=== PATIENT | male | born 1990 | race Caucasian/White ===

== ENCOUNTER 2019-01-31 11:43 | Inpatient (IN) | payer BC, MEDICAID ==
--- NOTE | 2019-01-31 12:25 | EDM.PDOC ---
ED HPI GENERAL MEDICAL PROBLEM - General Chief Complaint: General Stated Complaint: medical clearance Time Seen by Provider: 01/31/19 11:50 Source of Information: Reports: Patient, Police History Limitations: Reports: No Limitations - History of Present Illness INITIAL COMMENTS - FREE TEXT/NARRATIVE: Patient comes into the emergency department for medical clearance via police department. Pt is a known type I diabetic and takes sliding scale insulin and long acting insulin at hs. currently patient denies any concerns of nausea, vomiting, or vision, changes in vision, chest pain, shortness of breath, swollen extremities, tingling, or numbness. 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 With an open wound on the lower aspect of the foot and the second tow. Patient states that he has not seen medical provider for this. He denies any pus formation, fever, redness, or decrease in sensation. Pt currently denies any pain or changes in his health care. He does admit to using both amphetamine and marijuana. Last use of methenamine was yesterday last use of marijuana was approximately 2 days ago. Patient also states that she uses both drugs as often as possible when he can get the supply. - Related Data Allergies Allergy/AdvReac Type Severity Reaction Status Date / Time No Known Drug Allergies Allergy Other Verified 01/31/19 12:41 Home Meds: Home Meds Insulin Aspart [Novolog Flexpen] See Protocol SQ TIDMEALS 07/18/15 [History] Insulin Glarg,Human.Rec.Analog [Lantus] 30 unit SUBCUT DAILY 01/31/19 [History] Past Medical History Cardiovascular History: Reports: [place] Other Cardiovascular History: When 21, instigated by hyperglycemic episode Respiratory History: Reports: Asthma Other Gastrointestinal History: esophageal tear Neurological History: Reports: None Psychiatric History: Reports: Addiction Endocrine/Metabolic History: Reports: Diabetes, Type I Dermatologic History: Reports: None - Infectious Disease History Infectious Disease History: Reports: Chicken Pox - Past Surgical History Endocrine Surgical History: Reports: None Neurological Surgical History: Reports: None Musculoskeletal Surgical History: Reports: Other (See Below) Other Musculoskeletal Surgeries/Procedures:: left lower leg fracture surgical repair Social & Family History - Caffeine Use Caffeine Use: Reports: Soda ED ROS GENERAL - Review of Systems Review Of Systems: See Below Constitutional: Reports: No Symptoms HEENT: Reports: No Symptoms Respiratory: Reports: No Symptoms Cardiovascular: Reports: No Symptoms Endocrine: Reports: No Symptoms GI/Abdominal: Reports: No Symptoms : Reports: No Symptoms Musculoskeletal: Reports: No Symptoms Skin: Reports: Dryness, Wound, Change in Color Neurological: Reports: No Symptoms Psychiatric: Reports: No Symptoms Hematologic/Lymphatic: Reports: No Symptoms Immunologic: Reports: No Symptoms ED EXAM, GENERAL - Physical Exam Exam: See Below General Appearance: Alert, WD/WN, No Apparent Distress Eye Exam: Bilateral Eye: EOMI, PERRL Head: Atraumatic, Normocephalic Neck: Normal Inspection, Supple, Non-Tender Respiratory/Chest: No Respiratory Distress, Lungs Clear, Normal Breath Sounds, No Accessory Muscle Use Cardiovascular: Normal Peripheral Pulses, Regular Rate, Rhythm, No Edema Back Exam: Normal Inspection, Full Range of Motion Extremities: Non-Tender, No Pedal Edema, Redness Neurological: Alert, Slow to Respond Psychiatric: Normal Affect Skin Exam: Warm, Dry, Other (foot ulcer- 2cm width- clear drainage noted. second toe ulceration noted 1cm clear drainage noted. ) Course - Vital Signs Last Recorded V/S: Last Vital Signs Temp 39.0 C H 01/31/19 15:56 Pulse 124 H 01/31/19 15:56 Resp 16 01/31/19 15:56 BP 124/58 L 01/31/19 15:56 Pulse Ox 92 L 01/31/19 15:56 - Orders/Labs/Meds Orders: Active Orders 24 hr Category Date Time Status Blood Glucose Check, Bedside [RC] ONETIME Care 01/31/19 16:43 Active EKG Documentation Completion [RC] STAT Care 01/31/19 11:59 Active CULTURE BLOOD [BC] Stat Lab 01/31/19 14:00 Results Insulin Regular, Human [HumuLIN R] 99 unit Med 01/31/19 16:15 Active Sodium Chloride 0.9% [Normal Saline] 99 ml IV TITRATE Blood Culture x2 Reflex Set [OM.PC] Stat Oth 01/31/19 13:40 Ordered Medication Orders Insulin Human Regular 99 unit/ (Sodium Chloride) 99.99 mls @ 8.24 mls/hr IV TITRATE DEBBY; Protocol Last Admin: 01/31/19 16:19 Dose: 0.1 units/kg/hr, 8.24 mls/hr Labs: Laboratory Tests 01/31/19 01/31/19 01/31/19 Range/Units 12:42 12:42 13:00 WBC 11.5 H (4.0-10.0) x10^3/uL RBC 5.29 (4.5-6.0) x10^6/uL Hgb 15.3 (14.0-18.0) g/dL Hct 43.5 (40.0-52.0) % MCV 82.2 (78.0-93.0) fL MCH 28.9 (26.0-32.0) pg MCHC 35.2 (32.0-36.0) g/dL RDW Coeff of Mily 12.2 (10.0-15.0) % Plt Count 384 (130-400) x10^3/uL Neut % (Auto) 82.3 H (50.0-80.0) % Lymph % (Auto) 12.3 L (25.0-50.0) % [place] % (Auto) 4.2 (2.0-11.0) % Eos % (Auto) 0.8 (0.0-4.0) % Baso % (Auto) 0.4 (0.2-1.2) % POC ABG pH (7.35-7.45) ABG pH POC ABG pCO2 (35-45) mmHG ABG pCO2 POC ABG pO2 (80-105) mmHG ABG pO2 POC ABG HCO3 ABG HCO3 POC ABG Total CO2 ABG Total CO2 POC ABG O2 Sat ABG O2 Content POC ABG Base Excess ABG Base Excess A-a Gradient Oxygen Flow Rate FiO2 POC FiO2 Blood Gas Comments Sodium 133 L (136-145) mmol/L Potassium 4.4 (3.5-5.1) mmol/L Chloride 96 L (98-107) mmol/L Carbon Dioxide 25 (21-32) mmol/L Anion Gap 16.4 (10-20) mmol/L BUN 21 H (7-18) mg/dL Creatinine 0.8 (0.70-1.30) mg/dL Est Cr Clr Drug Dosing 160.17 mL/min Estimated GFR (MDRD) > 60 Glucose 407 H* (74-106) mg/dL Lactic Acid (0.4-2.0) mmol/L Calcium 9.4 (8.5-10.1) mg/dL Corrected Calcium 10.36 H (8.5-10.1) mg/dL Total Bilirubin 0.3 (0.2-1.0) mg/dL AST 10 L (15-37) U/L ALT 25 (16-63) U/L Alkaline Phosphatase 198 H (46-116) U/L Total Protein 7.1 (6.4-8.2) g/dL Albumin 2.8 L (3.4-5.0) g/dL Globulin 4.3 Albumin/Globulin Ratio 0.65 Urine Color Yellow (YELLOW) Urine Appearance Clear (CLEAR) Urine pH 5.0 (5.0-8.0) Ur Specific [place] 1.010 Urine Protein 100 H (NEGATIVE) mg/dL Urine Glucose (UA) 500 H (NEGATIVE) mg/dL Urine Ketones 15 H (NEGATIVE) mg/dL Urine Occult Blood Moderate H (NEGATIVE) Urine Nitrite Negative (NEGATIVE) Urine Bilirubin Negative (NEGATIVE) Urine Urobilinogen 0.2 (0.2) EU/dL Ur Leukocyte Esterase Negative (NEGATIVE) Urine RBC 0-5 (NOT SEEN) /HPF Urine WBC 0-5 (NOT SEEN) /HPF Ur Squamous Epith Cells Few H (NEGATIVE) /HPF Urine Bacteria Rare (NEGATIVE) /HPF Urine Mucus Few H (NEGATIVE) /LPF Urine Opiates Screen (NEAGTIVE) Ur Buprenorphine Scrn (NEGATIVE) Ur Oxycodone Screen (NEGATIVE) Urine Methadone Screen (NEGATIVE) Ur Barbiturates Screen (NEGATIVE) Ur Tricyclics Screen (NEGATIVE) Ur Amphetamine Screen (NEGATIVE) U Methamphetamines Scrn (NEGATIVE) Urine MDMA Screen (NEGATIVE) U Benzodiazepines Scrn (NEGATIVE) U Cocaine Metab Screen (NEGATIVE) U Marijuana (THC) Screen (NEGATIVE) 01/31/19 01/31/19 01/31/19 Range/Units 13:00 14:00 15:00 WBC (4.0-10.0) x10^3/uL RBC (4.5-6.0) x10^6/uL Hgb (14.0-18.0) g/dL Hct (40.0-52.0) % MCV (78.0-93.0) fL MCH (26.0-32.0) pg MCHC (32.0-36.0) g/dL RDW Coeff of Mily (10.0-15.0) % Plt Count (130-400) x10^3/uL Neut % (Auto) (50.0-80.0) % Lymph % (Auto) (25.0-50.0) % [place] % (Auto) (2.0-11.0) % Eos % (Auto) (0.0-4.0) % Baso % (Auto) (0.2-1.2) % POC ABG pH (7.35-7.45) ABG pH Cancelled POC ABG pCO2 (35-45) mmHG ABG pCO2 Cancelled POC ABG pO2 (80-105) mmHG ABG pO2 Cancelled POC ABG HCO3 ABG HCO3 Cancelled POC ABG Total CO2 ABG Total CO2 Cancelled POC ABG O2 Sat ABG O2 Content Cancelled POC ABG Base Excess ABG Base Excess Cancelled A-a Gradient Cancelled Oxygen Flow Rate Cancelled FiO2 Cancelled POC FiO2 Blood Gas Comments Cancelled Sodium (136-145) mmol/L Potassium (3.5-5.1) mmol/L Chloride (98-107) mmol/L Carbon Dioxide (21-32) mmol/L Anion Gap (10-20) mmol/L BUN (7-18) mg/dL Creatinine (0.70-1.30) mg/dL Est Cr Clr Drug Dosing mL/min Estimated GFR (MDRD) Glucose (74-106) mg/dL Lactic Acid 1.6 (0.4-2.0) mmol/L Calcium (8.5-10.1) mg/dL Corrected Calcium (8.5-10.1) mg/dL Total Bilirubin (0.2-1.0) mg/dL AST (15-37) U/L ALT (16-63) U/L Alkaline Phosphatase (46-116) U/L Total Protein (6.4-8.2) g/dL Albumin (3.4-5.0) g/dL Globulin Albumin/Globulin Ratio Urine Color (YELLOW) Urine Appearance (CLEAR) Urine pH (5.0-8.0) Ur Specific [place] Urine Protein (NEGATIVE) mg/dL Urine Glucose (UA) (NEGATIVE) mg/dL Urine Ketones (NEGATIVE) mg/dL Urine Occult Blood (NEGATIVE) Urine Nitrite (NEGATIVE) Urine Bilirubin (NEGATIVE) Urine Urobilinogen (0.2) EU/dL Ur Leukocyte Esterase (NEGATIVE) Urine RBC (NOT SEEN) /HPF Urine WBC (NOT SEEN) /HPF Ur Squamous Epith Cells (NEGATIVE) /HPF Urine Bacteria (NEGATIVE) /HPF Urine Mucus (NEGATIVE) /LPF Urine Opiates Screen Negative (NEAGTIVE) Ur Buprenorphine Scrn Negative (NEGATIVE) Ur Oxycodone Screen Negative (NEGATIVE) Urine Methadone Screen Negative (NEGATIVE) Ur Barbiturates Screen Negative (NEGATIVE) Ur Tricyclics Screen Negative (NEGATIVE) Ur Amphetamine Screen Negative (NEGATIVE) U Methamphetamines Scrn Negative (NEGATIVE) Urine MDMA Screen Negative (NEGATIVE) U Benzodiazepines Scrn Negative (NEGATIVE) U Cocaine Metab Screen Negative (NEGATIVE) U Marijuana (THC) Screen Negative (NEGATIVE) 01/31/19 01/31/19 Range/Units 15:00 16:36 WBC (4.0-10.0) x10^3/uL RBC (4.5-6.0) x10^6/uL Hgb (14.0-18.0) g/dL Hct (40.0-52.0) % MCV (78.0-93.0) fL MCH (26.0-32.0) pg MCHC (32.0-36.0) g/dL RDW Coeff of Mily (10.0-15.0) % Plt Count (130-400) x10^3/uL Neut % (Auto) (50.0-80.0) % Lymph % (Auto) (25.0-50.0) % [place] % (Auto) (2.0-11.0) % Eos % (Auto) (0.0-4.0) % Baso % (Auto) (0.2-1.2) % POC ABG pH 6.99 L* 7.395 (7.35-7.45) ABG pH POC ABG pCO2 < 5 L 38 (35-45) mmHG ABG pCO2 POC ABG pO2 92 74 L (80-105) mmHG ABG pO2 POC ABG HCO3 TNP 23 ABG HCO3 POC ABG Total CO2 TNP 24 ABG Total CO2 POC ABG O2 Sat TNP 95 ABG O2 Content POC ABG Base Excess TNP -2 ABG Base Excess A-a Gradient Oxygen Flow Rate FiO2 POC FiO2 0.21 0.21 Blood Gas Comments Sodium (136-145) mmol/L Potassium (3.5-5.1) mmol/L Chloride (98-107) mmol/L Carbon Dioxide (21-32) mmol/L Anion Gap (10-20) mmol/L BUN (7-18) mg/dL Creatinine (0.70-1.30) mg/dL Est Cr Clr Drug Dosing mL/min Estimated GFR (MDRD) Glucose (74-106) mg/dL Lactic Acid (0.4-2.0) mmol/L Calcium (8.5-10.1) mg/dL Corrected Calcium (8.5-10.1) mg/dL Total Bilirubin (0.2-1.0) mg/dL AST (15-37) U/L ALT (16-63) U/L Alkaline Phosphatase (46-116) U/L Total Protein (6.4-8.2) g/dL Albumin (3.4-5.0) g/dL Globulin Albumin/Globulin Ratio Urine Color (YELLOW) Urine Appearance (CLEAR) Urine pH (5.0-8.0) Ur Specific [place] Urine Protein (NEGATIVE) mg/dL Urine Glucose (UA) (NEGATIVE) mg/dL Urine Ketones (NEGATIVE) mg/dL Urine Occult Blood (NEGATIVE) Urine Nitrite (NEGATIVE) Urine Bilirubin (NEGATIVE) Urine Urobilinogen (0.2) EU/dL Ur Leukocyte Esterase (NEGATIVE) Urine RBC (NOT SEEN) /HPF Urine WBC (NOT SEEN) /HPF Ur Squamous Epith Cells (NEGATIVE) /HPF Urine Bacteria (NEGATIVE) /HPF Urine Mucus (NEGATIVE) /LPF Urine Opiates Screen (NEAGTIVE) Ur Buprenorphine Scrn (NEGATIVE) Ur Oxycodone Screen (NEGATIVE) Urine Methadone Screen (NEGATIVE) Ur Barbiturates Screen (NEGATIVE) Ur Tricyclics Screen (NEGATIVE) Ur Amphetamine Screen (NEGATIVE) U Methamphetamines Scrn (NEGATIVE) Urine MDMA Screen (NEGATIVE) U Benzodiazepines Scrn (NEGATIVE) U Cocaine Metab Screen (NEGATIVE) U Marijuana (THC) Screen (NEGATIVE) Meds: Medications Generic Name Dose Route Start Last Admin Trade Name Freq PRN Reason Stop Dose Admin Insulin Human Regular 99 unit/ 99.99 mls @ 8.24 mls/hr 01/31/19 16:15 16:19 Sodium Chloride IV 0.1 units/kg/hr TITRATE DEBBY 8.24 mls/hr Administration Protocol 0.1 UNITS/KG/HR Discontinued Medications Generic Name Dose Route Start Last Admin Trade Name Freq PRN Reason Stop Dose Admin Acetaminophen 650 mg 01/31/19 13:40 01/31/19 14:07 Tylenol PO 01/31/19 13:41 650 mg NOW ONE Administration Ceftriaxone Sodium 1 gm 01/31/19 13:40 01/31/19 14:08 Rocephin IVPUSH 01/31/19 13:41 1 gm ONETIME ONE Administration Sodium Chloride 1,000 mls @ 1,000 mls/hr 01/31/19 13:41 01/31/19 14:07 Normal Saline IV 01/31/19 14:40 1,000 mls/hr ONETIME ONE Administration Sodium Chloride 1,000 mls @ 1,000 mls/hr 01/31/19 16:13 01/31/19 16:19 Normal Saline IV 01/31/19 17:12 1,000 mls/hr ONETIME ONE Administration Ibuprofen 600 mg 01/31/19 16:57 Motrin PO 01/31/19 16:58 NOW STA Insulin Human Regular 10 unit 01/31/19 13:49 01/31/19 14:06 Humulin R IVPUSH 01/31/19 13:50 10 unit ONETIME ONE Administration Departure - Departure Time of Disposition: 17:00 Disposition: Admitted As Inpatient 67 Clinical Impression: Hyperglycemia due to type 1 diabetes mellitus, Dehydration - Discharge Information *PRESCRIPTION DRUG MONITORING PROGRAM REVIEWED*: Not Applicable *COPY OF PRESCRIPTION DRUG MONITORING REPORT IN PATIENT SHARON: Not Applicable - My Orders Last 24 Hours: My Active Orders 01/31/19 11:59 EKG Documentation Completion [RC] STAT 01/31/19 13:40 Blood Culture x2 Reflex Set [OM.PC] Stat 01/31/19 14:00 CULTURE BLOOD [BC] Stat 01/31/19 16:15 Insulin Regular, Human [HumuLIN R] 99 unit Sodium Chloride 0.9% [Normal Saline ] 99 ml IV TITRATE 01/31/19 16:43 Blood Glucose Check, Bedside [RC] ONETIME - Assessment/Plan Last 24 Hours: My Active Orders 01/31/19 11:59 EKG Documentation Completion [RC] STAT 01/31/19 13:40 Blood Culture x2 Reflex Set [OM.PC] Stat 01/31/19 14:00 CULTURE BLOOD [BC] Stat 01/31/19 16:15 Insulin Regular, Human [HumuLIN R] 99 unit Sodium Chloride 0.9% [Normal Saline ] 99 ml IV TITRATE 01/31/19 16:43 Blood Glucose Check, Bedside [RC] ONETIME Assessment:: 1. Medical fdc clearance 2. Hyperglycemia 3. Fever 4. wound ulcer Plan: 1. medical clearance for fdc 2. labs completed in ER 3. During the emergency room visit patient became febrile temp up to 103 and had chills. Patient became less alert but still responsive to verbal stimuli . Sugars noted. Patient was responsive. Blood sugar critical level at 407. Nursing personnel attempted multiple times to place IV without success.Delay of antibiotic related to initiation of an IV. 4. X-ray completed of the foot 5. Regular insulin ordered 6. Fluid bolus given in ER 7. Rocephin given in ER 8. 1440 please released the pt from their custody and pt his here as just a medical patient at this time. 9. Consult with [facility] at 1540. Hospitalist request to redraw blood gas 10. Insulin drip started 11. Repeat blood gas within normal limits. Pt is feeling "a little better". Pt would like to be admitted here if possible. He does not have a primary and stated he would like to get set up with one. Yash Mello is machine operations supervisor for [facility] and is willing to admit the pt to acute care and manage the patients diabetes watcher [employer]. 12. All questions and concerns addressed prior admit.
[2019-01-31 13:09] LABS: CHLORIDE,CL 96 mmol/L (98-107); SODIUM,NA 133 mmol/L (136-145)
[2019-01-31 13:21] LABS: ANION GAP 16.4 mmol/L (10-20)
[2019-01-31] MEDS ORDERED: Acetaminophen 325 MG Tab PO ONE (13:40)
[2019-01-31] MEDS ORDERED: cefTRIAXone 1 GM Vial IVPUSH ONE (13:40)
[2019-01-31] MEDS ORDERED: Sodium Chloride 0.9% 1,000 ML IV ONE ×2 (13:41→16:13)
[2019-01-31] MEDS ORDERED: Insulin Regular, Human 100 Units/ML 3 ML Vial IVPUSH ONE (13:49)
[2019-01-31] MEDS ORDERED: Insulin Regular, Human 99 UNIT in Sodium Chloride 0.9% 99 ML IV SCH ×2 (16:15)
--- NOTE | 2019-01-31 16:16 | CR ---
[id number] RAD/RAD Foot Left 3V Min EXAM: 3 VIEWS LEFT FOOT. INDICATION: FOOT INFECTION. COMPARISON: None. DISCUSSION: Postsurgical changes following transmetatarsal 1st digit amputation. There appears to be an ulceration within the overlying soft tissues. No definite radiographic evidence of acute ostomy orifice. Chronic changes of the left 2nd metatarsal. IMPRESSION: 1. No definite radiographic evidence of acute osteomyelitis at this time. Carlos Wilkinson DO 01/31/19 [id number] Thank you for allowing us to participate in the care of your patient.
[2019-01-31] MEDS ORDERED: Ibuprofen 200 MG Tab PO STA (16:57)
[2019-01-31] MEDS ORDERED: Docusate Sodium 100 MG Cap PO PRN (18:04)
[2019-01-31] MEDS ORDERED: Ondansetron 4 MG Tab.DIS PO PRN (18:04)
[2019-01-31] MEDS ORDERED: Acetaminophen 325 MG Tab PO PRN (18:04)
[2019-01-31] MEDS ORDERED: Polyethylene Glycol 3350 Powder 17 GM Packet PO PRN (18:04)
[2019-01-31] MEDS: Insulin Regular, Human 100 Units/ML 3 ML Vial SUBCUT SCH (18:22)
--- NOTE | 2019-01-31 18:46 | PCM.HP ---
H&P History of Present Illness - General Date of Service: 01/31/19 Admit Problem/Dx: Admission Diagnosis/Problem Admission Diagnosis/Problem Sepsis 2/2 diabetic foot ulcer Uncontrolled DM HTN 2/2 DM Hyperglycemia Diabetic Foot Ulcers Dehydration Non-compliance Source of Information: Patient, Old Records, RN, RN Notes Reviewed History Limitations: Reports: No Limitations - History of Present Illness Initial Comments - Free Text/Narative: Patient was brought into the emergency department for medical clearance via [facility] hospital department. Pt is a known type I diabetic and takes sliding scale insulin and long acting insulin at daily. Currently patient denies any concerns of nausea, vomiting, or vision, changes in vision, chest pain, shortness of breath, swollen extremities, tingling, or numbness. 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 Patient states that he has not seen medical provider for this. He denies any pus formation, fever, redness, or decrease in sensation. Pt currently denies any pain or changes in his health care. He does admit to using both amphetamine and marijuana. Last use of methenamine was yesterday last use of marijuana was approximately 2 days ago. Patient also states that she uses both drugs as often as possible when he can get the supply. Patient was admitted to [facility] 09/26/2018 for DKA. He apparently was abusive to staff according to [place] records. He left AMA on 09/28/2018. He was seen in clinic on 10/10/2018 in the Endocrine department at [place]. Adjustments were made to his insulin regimen but patient has not been compliant. Patient was diagnosed with Type I DM at age 12. Patient is not having any neurological deficits. He has sensation to both lower extremities and feet. He denies any pain to his wounds. Duration of Symptoms: Reports: Chronic - Related Data Allergies/Adverse Reactions: Allergies Allergy/AdvReac Type Severity Reaction Status Date / Time No Known Drug Allergies Allergy Other Verified 01/31/19 12:41 Home Medications: Home Meds Insulin Aspart [Novolog Flexpen] See Protocol SQ TIDMEALS 07/18/15 [History] Insulin Glarg,Human.Rec.Analog [Lantus] 30 unit SUBCUT DAILY 01/31/19 [History] Past Medical History Cardiovascular History: Reports: [place] Other Cardiovascular History: When 21, instigated by hyperglycemic episode Respiratory History: Reports: Asthma Other Gastrointestinal History: esophageal tear Neurological History: Reports: None Psychiatric History: Reports: Addiction Endocrine/Metabolic History: Reports: Diabetes, Type I Dermatologic History: Reports: None - Infectious Disease History Infectious Disease History: Reports: Chicken Pox - Past Surgical History Endocrine Surgical History: Reports: None Neurological Surgical History: Reports: None Musculoskeletal Surgical History: Reports: Other (See Below) Other Musculoskeletal Surgeries/Procedures:: left lower leg fracture surgical repair Social & Family History - Tobacco Use Smoking Status *Q: Never Smoker - Caffeine Use Caffeine Use: Reports: Soda - Recreational Drug Use Recreational Drug Use: Yes Drug Use in Last 12 Months: Yes Recreational Drug Type: Reports: Marijuana/Hashish, Methamphetamine H&P Review of Systems - Review of Systems: Review Of Systems: See Below General: Reports: Fever Pulmonary: Denies: Shortness of Breath, Cough Cardiovascular: Denies: Chest Pain, Palpitations Gastrointestinal: Reports: Nausea. Denies: Abdominal Pain, Vomiting Skin: Reports: Wound (diabetic wounds to left and right foot) Neurological: Reports: No Symptoms Exam - Exam Exam: See Below - Vital Signs Vital Signs: Last Vital Signs Temp 38.1 C 01/31/19 18:17 Pulse 114 H 01/31/19 17:19 Resp 14 01/31/19 17:19 BP 103/76 01/31/19 17:19 Pulse Ox 94 L 01/31/19 17:19 Weight: 73.255 kg - Exam Quality Assessment: Skin Breakdown. No: DVT Prophylaxis General: Alert, Oriented, Cooperative Lungs: Clear to Auscultation, Normal Respiratory Effort Cardiovascular: Regular Rhythm, Normal S1, Normal S2, Tachycardia GI/Abdominal Exam: Normal Bowel Sounds, Soft, Non-Tender Peripheral Pulses: 2+: Posterior Tibial (L), Posterior Tibial (R), Dorsalis Pedis (L), Dorsalis Pedis (R) Skin: Warm, Dry, Wound (See attached photos), Other (Open wound to the left great toe amputation site, looks like it has been trying to heal for quite some time; open wound to the top of the 2nd digit right foot, scant purulent drainage , no odor (see photos in EMR)) Neuro Extensive - Mental Status: Alert, Oriented x3 - Patient Data Lab Results Last 24 hrs: Laboratory Results - last 24 hr 01/31/19 01/31/1901/31/19 Range/Units 12:42 12:42 13:00 WBC 11.5 H (4.0-10.0) x10^3/uL RBC 5.29 (4.5-6.0) x10^6/uL Hgb 15.3 (14.0-18.0) g/dL Hct 43.5 (40.0-52.0) % MCV 82.2 (78.0-93.0) fL MCH 28.9 (26.0-32.0) pg MCHC 35.2 (32.0-36.0) g/dL RDW Coeff of Mily 12.2 (10.0-15.0) % Plt Count 384 (130-400) x10^3/uL Neut % (Auto) 82.3 H (50.0-80.0) % Lymph % (Auto) 12.3 L (25.0-50.0) % [place] % (Auto) 4.2 (2.0-11.0) % Eos % (Auto) 0.8 (0.0-4.0) % Baso % (Auto) 0.4 (0.2-1.2) % POC ABG pH (7.35-7.45) ABG pH POC ABG pCO2 (35-45) mmHG ABG pCO2 POC ABG pO2 (80-105) mmHG ABG pO2 POC ABG HCO3 ABG HCO3 POC ABG Total CO2 ABG Total CO2 POC ABG O2 Sat ABG O2 Content POC ABG Base Excess ABG Base Excess A-a Gradient Oxygen Flow Rate FiO2 POC FiO2 Blood Gas Comments Sodium 133 L (136-145) mmol/L Potassium 4.4 (3.5-5.1) mmol/L Chloride 96 L (98-107) mmol/L Carbon Dioxide 25 (21-32) mmol/L Anion Gap 16.4 (10-20) mmol/L BUN 21 H (7-18) mg/dL Creatinine 0.8 (0.70-1.30) mg/dL Est Cr Clr Drug Dosing 160.17 mL/min Estimated GFR (MDRD) > 60 Glucose 407 H* (74-106) mg/dL POC Glucose (74-106) mg/dL Lactic Acid (0.4-2.0) mmol/L Calcium 9.4 (8.5-10.1) mg/dL Corrected Calcium 10.36 H (8.5-10.1) mg/dL Total Bilirubin 0.3 (0.2-1.0) mg/dL AST 10 L (15-37) U/L ALT 25 (16-63) U/L Alkaline Phosphatase 198 H (46-116) U/L Total Protein 7.1 (6.4-8.2) g/dL Albumin 2.8 L (3.4-5.0) g/dL Globulin 4.3 Albumin/Globulin Ratio 0.65 Urine Color Yellow (YELLOW) Urine Appearance Clear (CLEAR) Urine pH 5.0 (5.0-8.0) Ur Specific [place] 1.010 Urine Protein 100 H (NEGATIVE) mg/dL Urine Glucose (UA) 500 H (NEGATIVE) mg/dL Urine Ketones 15 H (NEGATIVE) mg/dL Urine Occult Blood Moderate H (NEGATIVE) Urine Nitrite Negative (NEGATIVE) Urine Bilirubin Negative (NEGATIVE) Urine Urobilinogen 0.2 (0.2) EU/dL Ur Leukocyte Esterase Negative (NEGATIVE) Urine RBC 0-5 (NOT SEEN) /HPF Urine WBC 0-5 (NOT SEEN) /HPF Ur Squamous Epith Cells Few H (NEGATIVE) /HPF Urine Bacteria Rare (NEGATIVE) /HPF Urine Mucus Few H (NEGATIVE) /LPF Urine Opiates Screen (NEAGTIVE) Ur Buprenorphine Scrn (NEGATIVE) Ur Oxycodone Screen (NEGATIVE) Urine Methadone Screen (NEGATIVE) Ur Barbiturates Screen (NEGATIVE) Ur Tricyclics Screen (NEGATIVE) Ur Amphetamine Screen (NEGATIVE) U Methamphetamines Scrn (NEGATIVE) Urine MDMA Screen (NEGATIVE) U Benzodiazepines Scrn (NEGATIVE) U Cocaine Metab Screen (NEGATIVE) U Marijuana (THC) Screen (NEGATIVE) 01/31/19 01/31/19 01/31/19 Range/Units 13:00 14:00 15:00 WBC (4.0-10.0) x10^3/uL RBC (4.5-6.0) x10^6/uL Hgb (14.0-18.0) g/dL Hct (40.0-52.0) % MCV (78.0-93.0) fL MCH (26.0-32.0) pg MCHC (32.0-36.0) g/dL RDW Coeff of Mily (10.0-15.0) % Plt Count (130-400) x10^3/uL Neut % (Auto) (50.0-80.0) % Lymph % (Auto) (25.0-50.0) % [place] % (Auto) (2.0-11.0) % Eos % (Auto) (0.0-4.0) % Baso % (Auto) (0.2-1.2) % POC ABG pH (7.35-7.45) ABG pH Cancelled POC ABG pCO2 (35-45) mmHG ABG pCO2 Cancelled POC ABG pO2 (80-105) mmHG ABG pO2 Cancelled POC ABG HCO3 ABG HCO3 Cancelled POC ABG Total CO2 ABG Total CO2 Cancelled POC ABG O2 Sat ABG O2 Content Cancelled POC ABG Base Excess ABG Base Excess Cancelled A-a Gradient Cancelled Oxygen Flow Rate Cancelled FiO2 Cancelled POC FiO2 Blood Gas Comments Cancelled Sodium (136-145) mmol/L Potassium (3.5-5.1) mmol/L Chloride (98-107) mmol/L Carbon Dioxide (21-32) mmol/L Anion Gap (10-20) mmol/L BUN (7-18) mg/dL Creatinine (0.70-1.30) mg/dL Est Cr Clr Drug Dosing mL/min Estimated GFR (MDRD) Glucose (74-106) mg/dL POC Glucose (74-106) mg/dL Lactic Acid 1.6 (0.4-2.0) mmol/L Calcium (8.5-10.1) mg/dL Corrected Calcium (8.5-10.1) mg/dL Total Bilirubin (0.2-1.0) mg/dL AST (15-37) U/L ALT (16-63) U/L Alkaline Phosphatase (46-116) U/L Total Protein (6.4-8.2) g/dL Albumin (3.4-5.0) g/dL Globulin Albumin/Globulin Ratio Urine Color (YELLOW) Urine Appearance (CLEAR) Urine pH (5.0-8.0) Ur Specific [place] Urine Protein (NEGATIVE) mg/dL Urine Glucose (UA) (NEGATIVE) mg/dL Urine Ketones (NEGATIVE) mg/dL Urine Occult Blood (NEGATIVE) Urine Nitrite (NEGATIVE) Urine Bilirubin (NEGATIVE) Urine Urobilinogen (0.2) EU/dL Ur Leukocyte Esterase (NEGATIVE) Urine RBC (NOT SEEN) /HPF Urine WBC (NOT SEEN) /HPF Ur Squamous Epith Cells (NEGATIVE) /HPF Urine Bacteria (NEGATIVE) /HPF Urine Mucus (NEGATIVE) /LPF Urine Opiates Screen Negative (NEAGTIVE) Ur Buprenorphine Scrn Negative (NEGATIVE) Ur Oxycodone Screen Negative (NEGATIVE) Urine Methadone Screen Negative (NEGATIVE) Ur Barbiturates Screen Negative (NEGATIVE) Ur Tricyclics Screen Negative (NEGATIVE) Ur Amphetamine Screen Negative (NEGATIVE) U Methamphetamines Scrn Negative (NEGATIVE) Urine MDMA Screen Negative (NEGATIVE) U Benzodiazepines Scrn Negative (NEGATIVE) U Cocaine Metab Screen Negative (NEGATIVE) U Marijuana (THC) Screen Negative (NEGATIVE) 01/31/19 01/31/19 01/31/19 Range/Units 15:00 16:36 17:45 WBC (4.0-10.0) x10^3/uL RBC (4.5-6.0) x10^6/uL Hgb (14.0-18.0) g/dL Hct (40.0-52.0) % MCV (78.0-93.0) fL MCH (26.0-32.0) pg MCHC (32.0-36.0) g/dL RDW Coeff of Mily (10.0-15.0) % Plt Count (130-400) x10^3/uL Neut % (Auto) (50.0-80.0) % Lymph % (Auto) (25.0-50.0) % [place] % (Auto) (2.0-11.0) % Eos % (Auto) (0.0-4.0) % Baso % (Auto) (0.2-1.2) % POC ABG pH 6.99 L* 7.395 (7.35-7.45) ABG pH POC ABG pCO2 < 5 L 38 (35-45) mmHG ABG pCO2 POC ABG pO2 92 74 L (80-105) mmHG ABG pO2 POC ABG HCO3 TNP 23 ABG HCO3 POC ABG Total CO2 TNP 24 ABG Total CO2 POC ABG O2 Sat TNP 95 ABG O2 Content POC ABG Base Excess TNP -2 ABG Base Excess A-a Gradient Oxygen Flow Rate FiO2 POC FiO2 0.21 0.21 Blood Gas Comments Sodium (136-145) mmol/L Potassium (3.5-5.1) mmol/L Chloride (98-107) mmol/L Carbon Dioxide (21-32) mmol/L Anion Gap (10-20) mmol/L BUN (7-18) mg/dL Creatinine (0.70-1.30) mg/dL Est Cr Clr Drug Dosing mL/min Estimated GFR (MDRD) Glucose (74-106) mg/dL POC Glucose 47 L (74-106) mg/dL Lactic Acid (0.4-2.0) mmol/L Calcium (8.5-10.1) mg/dL Corrected Calcium (8.5-10.1) mg/dL Total Bilirubin (0.2-1.0) mg/dL AST (15-37) U/L ALT (16-63) U/L Alkaline Phosphatase (46-116) U/L Total Protein (6.4-8.2) g/dL Albumin (3.4-5.0) g/dL Globulin Albumin/Globulin Ratio Urine Color (YELLOW) Urine Appearance (CLEAR) Urine pH (5.0-8.0) Ur Specific [place] Urine Protein (NEGATIVE) mg/dL Urine Glucose (UA) (NEGATIVE) mg/dL Urine Ketones (NEGATIVE) mg/dL Urine Occult Blood (NEGATIVE) Urine Nitrite (NEGATIVE) Urine Bilirubin (NEGATIVE) Urine Urobilinogen (0.2) EU/dL Ur Leukocyte Esterase (NEGATIVE) Urine RBC (NOT SEEN) /HPF Urine WBC (NOT SEEN) /HPF Ur Squamous Epith Cells (NEGATIVE) /HPF Urine Bacteria (NEGATIVE) /HPF Urine Mucus (NEGATIVE) /LPF Urine Opiates Screen (NEAGTIVE) Ur Buprenorphine Scrn (NEGATIVE) Ur Oxycodone Screen (NEGATIVE) Urine Methadone Screen (NEGATIVE) Ur Barbiturates Screen (NEGATIVE) Ur Tricyclics Screen (NEGATIVE) Ur Amphetamine Screen (NEGATIVE) U Methamphetamines Scrn (NEGATIVE) Urine MDMA Screen (NEGATIVE) U Benzodiazepines Scrn (NEGATIVE) U Cocaine Metab Screen (NEGATIVE) U Marijuana (THC) Screen (NEGATIVE) Result Diagrams: 01/31/19 12:42 01/31/19 12:42 [place]ino Results Last 24 hrs: Microbiology 01/31/19 14:00 Anaerobic Blood Culture - Final Blood - Venous *Q Meaningful Use (ADM) - VTE *Q VTE Mechanical Contraindications *Q: At Risk for Falls - Problem List (1) Sepsis, polymicrobial SNOMED Code(s): 44994561, 89130363 ICD Code: A41.9 - SEPSIS, UNSPECIFIED ORGANISM Status: Acute Priority: High Current Visit: Yes Onset Date: ~01/31/19 (2) Diabetic foot ulcer associated with type 1 diabetes mellitus SNOMED Code(s): 021056832 ICD Code: E10.621 - TYPE 1 DIABETES MELLITUS WITH FOOT ULCER; L97.509 - NON- PRESSURE CHRONIC ULCER OTH PRT UNSP FOOT W UNSP SEVERITY Status: Chronic Priority: Medium Current Visit: Yes Qualifiers: Diabetic foot ulcer location: toe Laterality: unspecified laterality Non- pressure ulcer stage: with fat layer exposed Qualified Code(s): E10.621 - Type 1 diabetes mellitus with foot ulcer; L97.502 - Non-pressure chronic ulcer of other part of unspecified foot with fat layer exposed (3) Dehydration SNOMED Code(s): 34203696 ICD Code: E86.0 - DEHYDRATION Status: Acute Priority: Medium Current Visit: Yes (4) Hyperglycemia due to type 1 diabetes mellitus SNOMED Code(s): 818668359457111, 125195035531101 ICD Code: E10.65 - TYPE 1 DIABETES MELLITUS WITH HYPERGLYCEMIA Status: Acute Priority: High Current Visit: Yes Onset Date: ~01/31/19 (5) Methamphetamine use SNOMED Code(s): 231090931 ICD Code: F15.10 - OTHER STIMULANT ABUSE, UNCOMPLICATED Status: Chronic Priority: Low Current Visit: No Problem List Initiated/Reviewed/Updated: Yes Orders Last 24hrs: Active Orders 24 hr Category Date Time Status Patient Status [ADT] Routine ADT 01/31/19 18:04 Active Accu Check [Blood Glucose Check, Bedside] [RC] 07,11,17 Care 01/31/19 18:03 Active ,20 Blood Glucose Check, Bedside [RC] ONETIME Care 01/31/19 16:43 Active Diabetes Education [RC] .PRN Care 01/31/19 18:17 Active Dietary Supplements [RC] 10,14 Care 01/31/19 18:10 Active EKG Documentation Completion [RC] STAT Care 01/31/19 11:59 Active Height and Weight [RC] UPON Care 01/31/19 18:04 Active Intake and Output [RC] QSHIFT Care 01/31/19 18:06 Active Oxygen Therapy [RC] .PRN Care 01/31/19 18:04 Active Up With Assistance [RC] ASDIRECTED Care 01/31/19 18:04 Active VTE/DVT Education [RC] PER UNIT ROUTINE Care 01/31/19 18:04 Active Vital Signs [RC] 06,10,14,18,22,02 Care 01/31/19 18:04 Active Wound Care [RC] 08,20 Care 01/31/19 17:53 Active Consult to Case Management/Sod Stripper [CONS] Cons 01/31/19 18:04 Active Routine [employer] Diet [DIET] Diet 01/31/19 Breakfast Active AMYLASE [CHEM] Routine Lab 01/31/19 12:42 Received B-HYDROXYBUTYRATE [REF] Stat Lab 01/31/19 18:21 Ordered BASIC METABOLIC PANEL,BMP [CHEM] Routine Lab 02/01/19 05:11 Ordered CBC WITH AUTO DIFF [HEME] Routine Lab 02/01/19 05:11 Ordered CREATINE KINASE,CK [CHEM] Routine Lab 01/31/19 12:42 Received CULTURE BLOOD [BC] Stat Lab 01/31/19 14:00 Results CULTURE WOUND + SMEAR [RM] Routine Lab 01/31/19 17:49 Ordered GLYCOSYLATED HEMOGLOBIN,HGBA1C [CHEM] Routine Lab 01/31/19 18:23 Ordered LIPASE [CHEM] Routine Lab 01/31/19 12:42 Received MAGNESIUM [CHEM] Routine Lab 01/31/19 12:42 Received MAGNESIUM [CHEM] Routine Lab 02/01/19 05:11 Ordered OSMOLALITY - SERUM [REF] Stat Lab 01/31/19 18:21 Ordered PHOSPHORUS [CHEM] Routine Lab 01/31/19 12:42 Received VANCOMYCIN TROUGH [CHEM] Timed Lab 02/01/19 18:30 Ordered Acetaminophen [Tylenol] Med 01/31/19 18:04 Active 650 mg PO Q4H PRN Docusate Sodium [Colace] Med 01/31/19 18:04 Active 100 mg PO BID PRN Insulin Regular, Human [HumuLIN R] Med 01/31/19 18:00 Active See Protocol SUBCUT TIDMEALS Meropenem [Merrem] 1 gm Med 01/31/19 18:30 Active Sodium Chloride 0.9% [Normal Saline] 100 ml IV Q8H Ondansetron [Zofran ODT] Med 01/31/19 18:04 Active 4 mg PO Q6H PRN Pharmacy to Dose - Vancomycin Med 01/31/19 18:15 Pending 1 dose .XX ASDIRECTED Polyethylene Glycol 3350 [MiraLAX] Med 01/31/19 18:04 Active 17 gm PO DAILY PRN Sodium Chloride 0.9% [Normal Saline] 1,000 ml Med 01/31/19 18:30 Active IV ASDIRECTED Vancomycin 1 gm Med 01/31/19 19:00 Active Sodium Chloride 0.9% [Normal Saline] 250 ml IV Q8H Blood Culture x2 Reflex Set [OM.PC] Stat Oth 01/31/19 13:40 Ordered Resuscitation Status Routine Resus Stat 01/31/19 18:04 Ordered Medication Orders Acetaminophen (Tylenol) 650 mg PO Q4H PRN PRN Reason: Pain (Mild 1-3)/fever Docusate Sodium (Colace) 100 mg PO BID PRN PRN Reason: Constipation Meropenem 1 gm/ Sodium (Chloride) 100 mls @ 200 mls/hr IV Q8H DEBBY Sodium Chloride (Normal Saline) 1,000 mls @ 125 mls/hr IV ASDIRECTED [facility] Vancomycin HCl 1 gm/ Sodium (Chloride) 250 mls @ 250 mls/hr IV Q8H [facility] Insulin Human Regular (Humulin R) 0 unit SUBCUT TIEALS [facility]; Protocol Last Admin: 01/31/19 18:22 Dose: Not Given Ondansetron HCl (Zofran Odt) 4 mg PO Q6H PRN PRN Reason: nausea, able to take PO Polyethylene Glycol (Miralax) 17 gm PO DAILY PRN PRN Reason: Constipation Vancomycin HCl (Pharmacy To Dose - Vancomycin) 1 dose .XX ASDIRECTED [facility] Assessment/Plan Comment:: 28 yo male patient with a past medical history of uncontrolled DM, toes amputations, and history of DKA is admitted to the acute care floor at [facility] for sepsis 2/2 diabetic foot ulcers, uncontrolled DM, acidosis, dehydration. Patient was started on an insulin drip but this was D/C'd shortly after admission. Continue with IVF at 125/hr. Start Meropenem and Vanco, dosed by pharmacy. Obtain additional labs tonight and recheck in AM. Start high dose SSI with Accu checks. ADA diet. Patient is a full code. Will be transferred to a higher level of care should the need arise. Will do daily dressing changes with abx ointment. DM education while admitted. Discussed with patient if he feels he is going to go AMA he shoulder just DC now, he states he will stay. AM labs ordered. NOTE: This patient was seen and examined by me as an [facility] provider.
[2019-01-31] MEDS: Meropenem 1 GM in Sodium Chloride 0.9% 100 ML IV SCH (18:55)
[2019-01-31] MEDS: Sodium Chloride 0.9% 1,000 ML IV SCH (18:56)
[2019-02-01] MEDS: Meropenem 1 GM in Sodium Chloride 0.9% 100 ML IV SCH ×2 (02:42→09:46)
[2019-02-01] MEDS: Sodium Chloride 0.9% 1,000 ML IV SCH (06:06)
[2019-02-01] MEDS: Insulin Regular, Human 100 Units/ML 3 ML Vial SUBCUT SCH ×2 (08:43→11:35)
[2019-02-01 08:49] LABS: CHLORIDE,CL 99 mmol/L (98-107); SODIUM,NA 132 mmol/L (136-145)
[2019-02-01 08:57] LABS: ANION GAP 13.7 mmol/L (10-20)
[2019-02-01] MEDS ORDERED: Magnesium Sulfate/Water 4 GM in Premix Bag 1 BAG IV ONE (09:33)
[2019-02-01 09:39] VITALS: BP 129/69
--- NOTE | 2019-02-01 10:15 | PCM.DCSUM1 ---
Discharge Summary - Hospital Course HPI Initial Comments: Patient was brought into the emergency department yesterday for medical clearance via [facility]. Pt is a known type I diabetic and takes sliding scale insulin and long acting insulin at daily. Currently patient denies any concerns of nausea, vomiting, or vision, changes in vision, chest pain, shortness of breath, swollen extremities, tingling, or numbness. 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 Patient states that he has not seen medical provider for this. He denies any pus formation, fever, redness, or decrease in sensation. Pt currently denies any pain or changes in his health care. He does admit to using both amphetamine and marijuana. Last use of methenamine was yesterday last use of marijuana was approximately 2 days ago. Patient also states that she uses both drugs as often as possible when he can get the supply. Patient was admitted to [facility] 09/26/2018 for DKA. He apparently was abusive to staff according to [place] records. He left AMA on 09/28/2018. He was seen in clinic on 10/10/2018 in the Endocrine department at [place]. Adjustments were made to his insulin regimen but patient has not been compliant. Patient was diagnosed with Type I DM at age 12. Patient is not having any neurological deficits. He has sensation to both lower extremities and feet. He denies any pain to his wounds. NOTE: This patient was seen and examined by me as an [facility] provider Diagnosis: Stroke: No Modified Callaway Scale: No Symptoms at All Modified Callaway Scale Score: 0 - Discharge Data Discharge Date: 02/01/19 Discharge Disposition: DC/Tfer to Acute Hospital 02 Condition: Fair - Discharge Diagnosis/Problem(s) (1) Sepsis, polymicrobial SNOMED Code(s): 83549423, 77041303 ICD Code: A41.9 - SEPSIS, UNSPECIFIED ORGANISM Status: Acute Priority: High Current Visit: Yes Onset Date: ~01/31/19 (2) Diabetic foot ulcer associated with type 1 diabetes mellitus SNOMED Code(s): 260283071 ICD Code: E10.621 - TYPE 1 DIABETES MELLITUS WITH FOOT ULCER; L97.509 - NON- PRESSURE CHRONIC ULCER OTH PRT UNSP FOOT W UNSP SEVERITY Status: Chronic Priority: Medium Current Visit: Yes Qualifiers: Diabetic foot ulcer location: toe Laterality: unspecified laterality Non- pressure ulcer stage: with fat layer exposed Qualified Code(s): E10.621 - Type 1 diabetes mellitus with foot ulcer; L97.502 - Non-pressure chronic ulcer of other part of unspecified foot with fat layer exposed (3) Dehydration SNOMED Code(s): 39487110 ICD Code: E86.0 - DEHYDRATION Status: Acute Priority: Medium Current Visit: Yes (4) Hyperglycemia due to type 1 diabetes mellitus SNOMED Code(s): 947208557441544, 592840865243981 ICD Code: E10.65 - TYPE 1 DIABETES MELLITUS WITH HYPERGLYCEMIA Status: Acute Priority: High Current Visit: Yes Onset Date: ~01/31/19 (5) Methamphetamine use SNOMED Code(s): 327217264 ICD Code: F15.10 - OTHER STIMULANT ABUSE, UNCOMPLICATED Status: Chronic Priority: Low Current Visit: No - Patient Summary/Data Consults: Consultations 01/31/19 18:04 Consult to Case Management/Milling Machine Operator [CONS] Routine Hospital Course: Patient has continued to be febrile despite abx therapy. Concerns is for acute osteomyelitis in the setting of uncontrolled DM. Patient has elevated WBC at 21.8 this morning. Decision made to transfer to [place] for Infectious Disease consult and wound care/possible surgical consult. - Patient Instructions Diet: Diabetic Diet - Discharge Plan *PRESCRIPTION DRUG MONITORING PROGRAM REVIEWED*: Not Applicable *COPY OF PRESCRIPTION DRUG MONITORING REPORT IN PATIENT SHARON: Not Applicable Home Medications: Home Meds Insulin Aspart [Novolog Flexpen] See Protocol SQ TIDMEALS 07/18/15 [History] Insulin Glarg,Human.Rec.Analog [Lantus] 30 unit SUBCUT DAILY 01/31/19 [History] Meropenem [Merrem] 1 gm IV Q8H sdv 02/01/19 [Rx] Sodium Chloride 0.9% [Normal Saline] 125 ml IV ASDIRECTED bag 02/01/19 [Rx] Vancomycin 1 gm IV Q8H sdv 02/01/19 [Rx] Oxygen Therapy Mode: Room Air Forms: Interfacility Transfer EMTALA Referrals: PCP,None [Primary Care Provider] - - Discharge Summary/Plan Comment DC Time >30 min.: Yes Discharge Summary/Plan Comment: Patient will be transferred to [facility] for ID consult and further wound care and possible debridement. Case discussed with Dr. Rodriguez, Hospitalist. Patient accepted in transfer. Patient will be sent ALS ground. Patient is aware of this transfer and agrees with POC. NOTE: This patient was seen and examined by me as an [facility] provider - General Info Date of Service: 02/01/19 Admission Dx/Problem (Free Text: Admission Diagnosis/Problem Admission Diagnosis/Problem Sepsis 2/2 diabetic foot ulcer Uncontrolled DM HTN 2/2 DM Hyperglycemia Diabetic Foot Ulcers Dehydration Non-compliance Functional Status: Reports: Pain Controlled, Tolerating Diet, Urinating. Denies : Ambulating, New Symptoms Numeric/FACES Score: 0 - Review of Systems General: Reports: Fever, Fatigue Pulmonary: Denies: Shortness of Breath, Cough Cardiovascular: Denies: Chest Pain, Palpitations Gastrointestinal: Reports: Nausea. Denies: Abdominal Pain, Vomiting Skin: Reports: No Symptoms Neurological: Reports: No Symptoms - Patient Data Vitals - Most Recent: Last Vital Signs Temp 37.9 C 02/01/19 09:36 Pulse 105 H 02/01/19 09:36 Resp 18 02/01/19 09:36 BP 129/69 02/01/19 09:36 Pulse Ox 95 02/01/19 09:36 Weight - Most Recent: 73.255 kg I&O - Last 24 hours: Intake & Output 01/31/19 02/01/19 02/01/19 22:59 06:59 14:59 Intake Total 360 1978 180 Output Total 1000 Balance 360 1978 -820 Lab Results - Last 24 hrs: Laboratory Results - last 24 hr 01/31/19 01/31/19 01/31/19 Range/Units 12:42 12:42 12:42 WBC 11.5 H (4.0-10.0) x10^3/uL RBC 5.29 (4.5-6.0) x10^6/uL Hgb 15.3 (14.0-18.0) g/dL Hct 43.5 (40.0-52.0) % MCV 82.2 (78.0-93.0) fL MCH 28.9 (26.0-32.0) pg MCHC 35.2 (32.0-36.0) g/dL RDW Coeff of Mily 12.2 (10.0-15.0) % Plt Count 384 (130-400) x10^3/uL Neut % (Auto) 82.3 H (50.0-80.0) % Lymph % (Auto) 12.3 L (25.0-50.0) % [place] % (Auto) 4.2 (2.0-11.0) % Eos % (Auto) 0.8 (0.0-4.0) % Baso % (Auto) 0.4 (0.2-1.2) % POC ABG pH (7.35-7.45) ABG pH POC ABG pCO2 (35-45) mmHG ABG pCO2 POC ABG pO2 (80-105) mmHG ABG pO2 POC ABG HCO3 ABG HCO3 POC ABG Total CO2 ABG Total CO2 POC ABG O2 Sat ABG O2 Content POC ABG Base Excess ABG Base Excess A-a Gradient Oxygen Flow Rate FiO2 POC FiO2 Blood Gas Comments Sodium 133 L (136-145) mmol/L Potassium 4.4 (3.5-5.1) mmol/L Chloride 96 L (98-107) mmol/L Carbon Dioxide 25 (21-32) mmol/L Anion Gap 16.4 (10-20) mmol/L BUN 21 H (7-18) mg/dL Creatinine 0.8 (0.70-1.30) mg/dL Est Cr Clr Drug Dosing 160.17 mL/min Estimated GFR (MDRD) > 60 Glucose 407 H* (74-106) mg/dL POC Glucose (74-106) mg/dL Hemoglobin A1c (4.5-6.2) % Lactic Acid (0.4-2.0) mmol/L Calcium 9.4 (8.5-10.1) mg/dL Corrected Calcium 10.36 H (8.5-10.1) mg/dL Phosphorus 4.4 (2.6-4.7) mg/dL Magnesium 1.7 L (1.8-2.4) mg/dL Total Bilirubin 0.3 (0.2-1.0) mg/dL AST 10 L (15-37) U/L ALT 25 (16-63) U/L Alkaline Phosphatase 198 H (46-116) U/L Creatine Kinase 88 (39-308) U/L Total Protein 7.1 (6.4-8.2) g/dL Albumin 2.8 L (3.4-5.0) g/dL Globulin 4.3 Albumin/Globulin Ratio 0.65 Amylase 43 (25-115) U/L Lipase 107 (73-393) U/L Urine Color (YELLOW) Urine Appearance (CLEAR) Urine pH (5.0-8.0) Ur Specific [place] Urine Protein (NEGATIVE) mg/dL Urine Glucose (UA) (NEGATIVE) mg/dL Urine Ketones (NEGATIVE) mg/dL Urine Occult Blood (NEGATIVE) Urine Nitrite (NEGATIVE) Urine Bilirubin (NEGATIVE) Urine Urobilinogen (0.2) EU/dL Ur Leukocyte Esterase (NEGATIVE) Urine RBC (NOT SEEN) /HPF Urine WBC (NOT SEEN) /HPF Ur Squamous Epith Cells (NEGATIVE) /HPF Urine Bacteria (NEGATIVE) /HPF Urine Mucus (NEGATIVE) /LPF Urine Opiates Screen (NEAGTIVE) Ur Buprenorphine Scrn (NEGATIVE) Ur Oxycodone Screen (NEGATIVE) Urine Methadone Screen (NEGATIVE) Ur Barbiturates Screen (NEGATIVE) Ur Tricyclics Screen (NEGATIVE) Ur Amphetamine Screen (NEGATIVE) U Methamphetamines Scrn (NEGATIVE) Urine MDMA Screen (NEGATIVE) U Benzodiazepines Scrn (NEGATIVE) U Cocaine Metab Screen (NEGATIVE) U Marijuana (THC) Screen (NEGATIVE) 01/31/19 01/31/19 01/31/19 Range/Units 13:00 13:00 14:00 WBC (4.0-10.0) x10^3/uL RBC (4.5-6.0) x10^6/uL Hgb (14.0-18.0) g/dL Hct (40.0-52.0) % MCV (78.0-93.0) fL MCH (26.0-32.0) pg MCHC (32.0-36.0) g/dL RDW Coeff of Mily (10.0-15.0) % Plt Count (130-400) x10^3/uL Neut % (Auto) (50.0-80.0) % Lymph % (Auto) (25.0-50.0) % [place] % (Auto) (2.0-11.0) % Eos % (Auto) (0.0-4.0) % Baso % (Auto) (0.2-1.2) % POC ABG pH (7.35-7.45) ABG pH POC ABG pCO2 (35-45) mmHG ABG pCO2 POC ABG pO2 (80-105) mmHG ABG pO2 POC ABG HCO3 ABG HCO3 POC ABG Total CO2 ABG Total CO2 POC ABG O2 Sat ABG O2 Content POC ABG Base Excess ABG Base Excess A-a Gradient Oxygen Flow Rate FiO2 POC FiO2 Blood Gas Comments Sodium (136-145) mmol/L Potassium (3.5-5.1) mmol/L Chloride (98-107) mmol/L Carbon Dioxide (21-32) mmol/L Anion Gap (10-20) mmol/L BUN (7-18) mg/dL Creatinine (0.70-1.30) mg/dL Est Cr Clr Drug Dosing mL/min Estimated GFR (MDRD) Glucose (74-106) mg/dL POC Glucose (74-106) mg/dL Hemoglobin A1c (4.5-6.2) % Lactic Acid 1.6 (0.4-2.0) mmol/L Calcium (8.5-10.1) mg/dL Corrected Calcium (8.5-10.1) mg/dL Phosphorus (2.6-4.7) mg/dL Magnesium (1.8-2.4) mg/dL Total Bilirubin (0.2-1.0) mg/dL AST (15-37) U/L ALT (16-63) U/L Alkaline Phosphatase (46-116) U/L Creatine Kinase (39-308) U/L Total Protein (6.4-8.2) g/dL Albumin (3.4-5.0) g/dL Globulin Albumin/Globulin Ratio Amylase (25-115) U/L Lipase (73-393) U/L Urine Color Yellow (YELLOW) Urine Appearance Clear (CLEAR) Urine pH 5.0 (5.0-8.0) Ur Specific [place] 1.010 Urine Protein 100 H (NEGATIVE) mg/dL Urine Glucose (UA) 500 H (NEGATIVE) mg/dL Urine Ketones 15 H (NEGATIVE) mg/dL Urine Occult Blood Moderate H (NEGATIVE) Urine Nitrite Negative (NEGATIVE) Urine Bilirubin Negative (NEGATIVE) Urine Urobilinogen 0.2 (0.2) EU/dL Ur Leukocyte Esterase Negative (NEGATIVE) Urine RBC 0-5 (NOT SEEN) /HPF Urine WBC 0-5 (NOT SEEN) /HPF Ur Squamous Epith Cells Few H (NEGATIVE) /HPF Urine Bacteria Rare (NEGATIVE) /HPF Urine Mucus Few H (NEGATIVE) /LPF Urine Opiates Screen Negative (NEAGTIVE) Ur Buprenorphine Scrn Negative (NEGATIVE) Ur Oxycodone Screen Negative (NEGATIVE) Urine Methadone Screen Negative (NEGATIVE) Ur Barbiturates Screen Negative (NEGATIVE) Ur Tricyclics Screen Negative (NEGATIVE) Ur Amphetamine Screen Negative (NEGATIVE) U Methamphetamines Scrn Negative (NEGATIVE) Urine MDMA Screen Negative (NEGATIVE) U Benzodiazepines Scrn Negative (NEGATIVE) U Cocaine Metab Screen Negative (NEGATIVE) U Marijuana (THC) Screen Negative (NEGATIVE) 01/31/19 01/31/19 01/31/19 Range/Units 15:00 15:00 16:36 WBC (4.0-10.0) x10^3/uL RBC (4.5-6.0) x10^6/uL Hgb (14.0-18.0) g/dL Hct (40.0-52.0) % MCV (78.0-93.0) fL MCH (26.0-32.0) pg MCHC (32.0-36.0) g/dL RDW Coeff of Mily (10.0-15.0) % Plt Count (130-400) x10^3/uL Neut % (Auto) (50.0-80.0) % Lymph % (Auto) (25.0-50.0) % [place] % (Auto) (2.0-11.0) % Eos % (Auto) (0.0-4.0) % Baso % (Auto) (0.2-1.2) % POC ABG pH 6.99 L* 7.395 (7.35-7.45) ABG pH Cancelled POC ABG pCO2 < 5 L 38 (35-45) mmHG ABG pCO2 Cancelled POC ABG pO2 92 74 L (80-105) mmHG ABG pO2 Cancelled POC ABG HCO3 TNP 23 ABG HCO3 Cancelled POC ABG Total CO2 TNP 24 ABG Total CO2 Cancelled POC ABG O2 Sat TNP 95 ABG O2 Content Cancelled POC ABG Base Excess TNP -2 ABG Base Excess Cancelled A-a Gradient Cancelled Oxygen Flow Rate Cancelled FiO2 Cancelled POC FiO2 0.21 0.21 Blood Gas Comments Cancelled Sodium (136-145) mmol/L Potassium (3.5-5.1) mmol/L Chloride (98-107) mmol/L Carbon Dioxide (21-32) mmol/L Anion Gap (10-20) mmol/L BUN (7-18) mg/dL Creatinine (0.70-1.30) mg/dL Est Cr Clr Drug Dosing mL/min Estimated GFR (MDRD) Glucose (74-106) mg/dL POC Glucose (74-106) mg/dL Hemoglobin A1c (4.5-6.2) % Lactic Acid (0.4-2.0) mmol/L Calcium (8.5-10.1) mg/dL Corrected Calcium (8.5-10.1) mg/dL Phosphorus (2.6-4.7) mg/dL Magnesium (1.8-2.4) mg/dL Total Bilirubin (0.2-1.0) mg/dL AST (15-37) U/L ALT (16-63) U/L Alkaline Phosphatase (46-116) U/L Creatine Kinase (39-308) U/L Total Protein (6.4-8.2) g/dL Albumin (3.4-5.0) g/dL Globulin Albumin/Globulin Ratio Amylase (25-115) U/L Lipase (73-393) U/L Urine Color (YELLOW) Urine Appearance (CLEAR) Urine pH (5.0-8.0) Ur Specific [place] Urine Protein (NEGATIVE) mg/dL Urine Glucose (UA) (NEGATIVE) mg/dL Urine Ketones (NEGATIVE) mg/dL Urine Occult Blood (NEGATIVE) Urine Nitrite (NEGATIVE) Urine Bilirubin (NEGATIVE) Urine Urobilinogen (0.2) EU/dL Ur Leukocyte Esterase (NEGATIVE) Urine RBC (NOT SEEN) /HPF Urine WBC (NOT SEEN) /HPF Ur Squamous Epith Cells (NEGATIVE) /HPF Urine Bacteria (NEGATIVE) /HPF Urine Mucus (NEGATIVE) /LPF Urine Opiates Screen (NEAGTIVE) Ur Buprenorphine Scrn (NEGATIVE) Ur Oxycodone Screen (NEGATIVE) Urine Methadone Screen (NEGATIVE) Ur Barbiturates Screen (NEGATIVE) Ur Tricyclics Screen (NEGATIVE) Ur Amphetamine Screen (NEGATIVE) U Methamphetamines Scrn (NEGATIVE) Urine MDMA Screen (NEGATIVE) U Benzodiazepines Scrn (NEGATIVE) U Cocaine Metab Screen (NEGATIVE) U Marijuana (THC) Screen (NEGATIVE) 01/31/19 01/31/19 01/31/19 Range/Units 17:45 18:11 19:00 WBC (4.0-10.0) x10^3/uL RBC (4.5-6.0) x10^6/uL Hgb (14.0-18.0) g/dL Hct (40.0-52.0) % MCV (78.0-93.0) fL MCH (26.0-32.0) pg MCHC (32.0-36.0) g/dL RDW Coeff of Mily (10.0-15.0) % Plt Count (130-400) x10^3/uL Neut % (Auto) (50.0-80.0) % Lymph % (Auto) (25.0-50.0) % [place] % (Auto) (2.0-11.0) % Eos % (Auto) (0.0-4.0) % Baso % (Auto) (0.2-1.2) % POC ABG pH (7.35-7.45) ABG pH POC ABG pCO2 (35-45) mmHG ABG pCO2 POC ABG pO2 (80-105) mmHG ABG pO2 POC ABG HCO3 ABG HCO3 POC ABG Total CO2 ABG Total CO2 POC ABG O2 Sat ABG O2 Content POC ABG Base Excess ABG Base Excess A-a Gradient Oxygen Flow Rate FiO2 POC FiO2 Blood Gas Comments Sodium (136-145) mmol/L Potassium (3.5-5.1) mmol/L Chloride (98-107) mmol/L Carbon Dioxide (21-32) mmol/L Anion Gap (10-20) mmol/L BUN (7-18) mg/dL Creatinine (0.70-1.30) mg/dL Est Cr Clr Drug Dosing mL/min Estimated GFR (MDRD) Glucose (74-106) mg/dL POC Glucose 47 L 112 H (74-106) mg/dL Hemoglobin A1c 14.0 H (4.5-6.2) % Lactic Acid (0.4-2.0) mmol/L Calcium (8.5-10.1) mg/dL Corrected Calcium (8.5-10.1) mg/dL Phosphorus (2.6-4.7) mg/dL Magnesium (1.8-2.4) mg/dL Total Bilirubin (0.2-1.0) mg/dL AST (15-37) U/L ALT (16-63) U/L Alkaline Phosphatase (46-116) U/L Creatine Kinase (39-308) U/L Total Protein (6.4-8.2) g/dL Albumin (3.4-5.0) g/dL Globulin Albumin/Globulin Ratio Amylase (25-115) U/L Lipase (73-393) U/L Urine Color (YELLOW) Urine Appearance (CLEAR) Urine pH (5.0-8.0) Ur Specific [place] Urine Protein (NEGATIVE) mg/dL Urine Glucose (UA) (NEGATIVE) mg/dL Urine Ketones (NEGATIVE) mg/dL Urine Occult Blood (NEGATIVE) Urine Nitrite (NEGATIVE) Urine Bilirubin (NEGATIVE) Urine Urobilinogen (0.2) EU/dL Ur Leukocyte Esterase (NEGATIVE) Urine RBC (NOT SEEN) /HPF Urine WBC (NOT SEEN) /HPF Ur Squamous Epith Cells (NEGATIVE) /HPF Urine Bacteria (NEGATIVE) /HPF Urine Mucus (NEGATIVE) /LPF Urine Opiates Screen (NEAGTIVE) Ur Buprenorphine Scrn (NEGATIVE) Ur Oxycodone Screen (NEGATIVE) Urine Methadone Screen (NEGATIVE) Ur Barbiturates Screen (NEGATIVE) Ur Tricyclics Screen (NEGATIVE) Ur Amphetamine Screen (NEGATIVE) U Methamphetamines Scrn (NEGATIVE) Urine MDMA Screen (NEGATIVE) U Benzodiazepines Scrn (NEGATIVE) U Cocaine Metab Screen (NEGATIVE) U Marijuana (THC) Screen (NEGATIVE) 02/01/19 02/01/19 02/01/19 Range/Units 01:13 05:57 08:10 WBC 21.8 H* (4.0-10.0) x10^3/uL RBC 4.28 L (4.5-6.0) x10^6/uL Hgb 12.6 L D (14.0-18.0) g/dL Hct 36.3 L (40.0-52.0) % MCV 84.8 (78.0-93.0) fL MCH 29.4 (26.0-32.0) pg MCHC 34.7 (32.0-36.0) g/dL RDW Coeff of Mily 12.2 (10.0-15.0) % Plt Count 232 D (130-400) x10^3/uL Neut % (Auto) 83.1 H (50.0-80.0) % Lymph % (Auto) 9.2 L (25.0-50.0) % [place] % (Auto) 6.8 (2.0-11.0) % Eos % (Auto) 0.6 (0.0-4.0) % Baso % (Auto) 0.3 (0.2-1.2) % POC ABG pH (7.35-7.45) ABG pH POC ABG pCO2 (35-45) mmHG ABG pCO2 POC ABG pO2 (80-105) mmHG ABG pO2 POC ABG HCO3 ABG HCO3 POC ABG Total CO2 ABG Total CO2 POC ABG O2 Sat ABG O2 Content POC ABG Base Excess ABG Base Excess A-a Gradient Oxygen Flow Rate FiO2 POC FiO2 Blood Gas Comments Sodium (136-145) mmol/L Potassium (3.5-5.1) mmol/L Chloride (98-107) mmol/L Carbon Dioxide (21-32) mmol/L Anion Gap (10-20) mmol/L BUN (7-18) mg/dL Creatinine (0.70-1.30) mg/dL Est Cr Clr Drug Dosing mL/min Estimated GFR (MDRD) Glucose (74-106) mg/dL POC Glucose 148 H 190 H (74-106) mg/dL Hemoglobin A1c (4.5-6.2) % Lactic Acid (0.4-2.0) mmol/L Calcium (8.5-10.1) mg/dL Corrected Calcium (8.5-10.1) mg/dL Phosphorus (2.6-4.7) mg/dL Magnesium (1.8-2.4) mg/dL Total Bilirubin (0.2-1.0) mg/dL AST (15-37) U/L ALT (16-63) U/L Alkaline Phosphatase (46-116) U/L Creatine Kinase (39-308) U/L Total Protein (6.4-8.2) g/dL Albumin (3.4-5.0) g/dL Globulin Albumin/Globulin Ratio Amylase (25-115) U/L Lipase (73-393) U/L Urine Color (YELLOW) Urine Appearance (CLEAR) Urine pH (5.0-8.0) Ur Specific [place] Urine Protein (NEGATIVE) mg/dL Urine Glucose (UA) (NEGATIVE) mg/dL Urine Ketones (NEGATIVE) mg/dL Urine Occult Blood (NEGATIVE) Urine Nitrite (NEGATIVE) Urine Bilirubin (NEGATIVE) Urine Urobilinogen (0.2) EU/dL Ur Leukocyte Esterase (NEGATIVE) Urine RBC (NOT SEEN) /HPF Urine WBC (NOT SEEN) /HPF Ur Squamous Epith Cells (NEGATIVE) /HPF Urine Bacteria (NEGATIVE) /HPF Urine Mucus (NEGATIVE) /LPF Urine Opiates Screen (NEAGTIVE) Ur Buprenorphine Scrn (NEGATIVE) Ur Oxycodone Screen (NEGATIVE) Urine Methadone Screen (NEGATIVE) Ur Barbiturates Screen (NEGATIVE) Ur Tricyclics Screen (NEGATIVE) Ur Amphetamine Screen (NEGATIVE) U Methamphetamines Scrn (NEGATIVE) Urine MDMA Screen (NEGATIVE) U Benzodiazepines Scrn (NEGATIVE) U Cocaine Metab Screen (NEGATIVE) U Marijuana (THC) Screen (NEGATIVE) 02/01/19 Range/Units 08:10 WBC (4.0-10.0) x10^3/uL RBC (4.5-6.0) x10^6/uL Hgb (14.0-18.0) g/dL Hct (40.0-52.0) % MCV (78.0-93.0) fL MCH (26.0-32.0) pg MCHC (32.0-36.0) g/dL RDW Coeff of Mily (10.0-15.0) % Plt Count (130-400) x10^3/uL Neut % (Auto) (50.0-80.0) % Lymph % (Auto) (25.0-50.0) % [place] % (Auto) (2.0-11.0) % Eos % (Auto) (0.0-4.0) % Baso % (Auto) (0.2-1.2) % POC ABG pH (7.35-7.45) ABG pH POC ABG pCO2 (35-45) mmHG ABG pCO2 POC ABG pO2 (80-105) mmHG ABG pO2 POC ABG HCO3 ABG HCO3 POC ABG Total CO2 ABG Total CO2 POC ABG O2 Sat ABG O2 Content POC ABG Base Excess ABG Base Excess A-a Gradient Oxygen Flow Rate FiO2 POC FiO2 Blood Gas Comments Sodium 132 L (136-145) mmol/L Potassium 3.7 (3.5-5.1) mmol/L Chloride 99 (98-107) mmol/L Carbon Dioxide 23 (21-32) mmol/L Anion Gap 13.7 (10-20) mmol/L BUN 17 (7-18) mg/dL Creatinine 0.7 (0.70-1.30) mg/dL Est Cr Clr Drug Dosing 164.24 mL/min Estimated GFR (MDRD) > 60 Glucose 304 H (74-106) mg/dL POC Glucose (74-106) mg/dL Hemoglobin A1c (4.5-6.2) % Lactic Acid (0.4-2.0) mmol/L Calcium 7.9 L D (8.5-10.1) mg/dL Corrected Calcium (8.5-10.1) mg/dL Phosphorus (2.6-4.7) mg/dL Magnesium 1.5 L (1.8-2.4) mg/dL Total Bilirubin (0.2-1.0) mg/dL AST (15-37) U/L ALT (16-63) U/L Alkaline Phosphatase (46-116) U/L Creatine Kinase (39-308) U/L Total Protein (6.4-8.2) g/dL Albumin (3.4-5.0) g/dL Globulin Albumin/Globulin Ratio Amylase (25-115) U/L Lipase (73-393) U/L Urine Color (YELLOW) Urine Appearance (CLEAR) Urine pH (5.0-8.0) Ur Specific [place] Urine Protein (NEGATIVE) mg/dL Urine Glucose (UA) (NEGATIVE) mg/dL Urine Ketones (NEGATIVE) mg/dL Urine Occult Blood (NEGATIVE) Urine Nitrite (NEGATIVE) Urine Bilirubin (NEGATIVE) Urine Urobilinogen (0.2) EU/dL Ur Leukocyte Esterase (NEGATIVE) Urine RBC (NOT SEEN) /HPF Urine WBC (NOT SEEN) /HPF Ur Squamous Epith Cells (NEGATIVE) /HPF Urine Bacteria (NEGATIVE) /HPF Urine Mucus (NEGATIVE) /LPF Urine Opiates Screen (NEAGTIVE) Ur Buprenorphine Scrn (NEGATIVE) Ur Oxycodone Screen (NEGATIVE) Urine Methadone Screen (NEGATIVE) Ur Barbiturates Screen (NEGATIVE) Ur Tricyclics Screen (NEGATIVE) Ur Amphetamine Screen (NEGATIVE) U Methamphetamines Scrn (NEGATIVE) Urine MDMA Screen (NEGATIVE) U Benzodiazepines Scrn (NEGATIVE) U Cocaine Metab Screen (NEGATIVE) U Marijuana (THC) Screen (NEGATIVE) [facility] Results - Last 24 hrs: Microbiology 01/31/19 17:49 Gram Stain - Final Toe, Right - Right Second 01/31/19 14:00 Anaerobic Blood Culture - Final Blood - Venous Med Orders - Current: Current Medications Acetaminophen (Tylenol) 650 mg PO Q4H PRN PRN Reason: Pain (Mild 1-3)/fever Docusate Sodium (Colace) 100 mg PO BID PRN PRN Reason: Constipation Meropenem 1 gm/ Sodium (Chloride) 100 mls @ 200 mls/hr IV Q8H [facility] Last Admin: 02/01/19 09:46 Dose: 200 mls/hr Sodium Chloride (Normal Saline) 1,000 mls @ 125 mls/hr IV ASDIRECTED [facility] Last Admin: 02/01/19 06:06 Dose: 125 mls/hr Vancomycin HCl 1 gm/ Sodium (Chloride) 250 mls @ 250 mls/hr IV Q8H [facility] Last Admin: 02/01/19 03:30 Dose: 250 mls/hr Magnesium Sulfate 4 gm/ Premix 100 mls @ 25 mls/hr IV ONETIME ONE Stop: 02/01/19 13:32 Insulin Human Regular (Humulin R) 0 unit SUBCUT TIDMEALS [facility]; Protocol Last Admin: 02/01/19 08:43 Dose: 1 units Ondansetron HCl (Zofran Odt) 4 mg PO Q6H PRN PRN Reason: nausea, able to take PO Polyethylene Glycol (Miralax) 17 gm PO DAILY PRN PRN Reason: Constipation Vancomycin HCl (Pharmacy To Dose - Vancomycin) 1 dose .XX ASDIRECTED [facility] Discontinued Medications Acetaminophen (Tylenol) 650 mg PO NOW ONE Stop: 01/31/19 13:41 Last Admin: 01/31/19 14:07 Dose: 650 mg Ceftriaxone Sodium (Rocephin) 1 gm IVPUSH ONETIME ONE Stop: 01/31/19 13:41 Last Admin: 01/31/19 14:08 Dose: 1 gm Sodium Chloride (Normal Saline) 1,000 mls @ 1,000 mls/hr IV ONETIME ONE Stop: 01/31/19 14:40 Last Admin: 01/31/19 14:07 Dose: 1,000 mls/hr Insulin Human Regular 99 unit/ (Sodium Chloride) 99.99 mls @ 8.24 mls/hr IV TITRATE DEBBY; Protocol Last Admin: 01/31/19 16:19 Dose: 0.1 units/kg/hr, 8.24 mls/hr Sodium Chloride (Normal Saline) 1,000 mls @ 1,000 mls/hr IV ONETIME ONE Stop: 01/31/19 17:12 Last Admin: 01/31/19 16:19 Dose: 1,000 mls/hr Ibuprofen (Motrin) 600 mg PO NOW STA Stop: 01/31/19 16:58 Last Admin: 01/31/19 17:17 Dose: 600 mg Insulin Human Regular (Humulin R) 10 unit IVPUSH ONETIME ONE Stop: 01/31/19 13:50 Last Admin: 01/31/19 14:06 Dose: 10 unit - Exam Quality Assessment: Reports: Skin Breakdown. Denies: DVT Prophylaxis General: Reports: Alert, Oriented, Cooperative, No Acute Distress Lungs: Reports: Clear to Auscultation, Normal Respiratory Effort, Decreased Breath Sounds Cardiovascular: Reports: Regular Rhythm, Tachycardia GI/Abdominal Exam: Soft, Non-Tender, Abnormal Bowel Sounds (Hypoactive) Skin: Reports: Warm, Dry, Other (See photos from admit; nursing documentation) Wound/Incisions: Reports: Drainage, Erythema Neurological: Reports: No New Focal Deficit *Q Meaningful Use (DIS) - VTE *Q VTE Mechanical Contraindications *Q: At Risk for Falls
== END 2019-02-01 13:00 | disposition short-term general hospital (02) | DRG 872 ==
LOC: VM.ED 11:43 → VM.MS 16:55
PROVIDERS: ADMIT Nurse Practitioner Family; ATTEND Nurse Practitioner Family
DX: A41.9 Sepsis, unspecified organism (principal); E10.621 Type 1 diabetes mellitus with foot ulcer; E10.65 Type 1 diabetes mellitus with hyperglycemia; E86.0 Dehydration; L97.522 Non-pressure chronic ulcer of other part of left foot with fat layer exposed; F15.10 Other stimulant abuse, uncomplicated; Z79.4 Long term (current) use of insulin; I25.2 Old myocardial infarction; Z89.412 Acquired absence of left great toe; Z91.14 Patient's other noncompliance with medication regimen
CPT/HCPCS: 36415; 36600; 73630-LT; 80048; 80053; 80305-QW; 81001; 82010; 82150; 82550; 82803; 82962; 83036; 83605; 83690; 83735; 83930; 84100; 85025; 87040; 87070; 87077; 87205; 93005; 96361; 96365; 96366; 96375; 96376; 99285-25; A9270-GY; J0696; J1815-GY; J2185; J3370; J3475; J7030; J7050

== ENCOUNTER 2019-12-02 20:12 | Emergency (ER) | payer MEDICAID ==
[2019-12-02] MEDS ORDERED: Ondansetron 4 MG/2 ML SDV IVPUSH ONE (20:37)
--- NOTE | 2019-12-02 20:41 | EDM.PDOC ---
ED HPI GENERAL MEDICAL PROBLEM - General Chief Complaint: General Stated Complaint: DKA Time Seen by Provider: 12/02/19 20:25 Source of Information: Reports: Patient History Limitations: Reports: No Limitations - History of Present Illness INITIAL COMMENTS - FREE TEXT/NARRATIVE: Patient states that he feels like he is going into DKA said he has not been taking his Lantus insulin secondary to not being able to afford it for the last 3 days he has been taking his NovoLog on a sliding scale basis. He states his average blood sugars are around 200. He states he has not checked it since this morning and it was 315 states he has had some pizza to eat today and then about an hour prior to arrival he vomited twice studies had only had a limited amount of fluids today. He states he just feels dry He has no other complaints at this time Patient states he has been placed inpatient a few times for DKA he has been a diabetic since he was age 12 Onset: Today Duration: Hour(s): Associated Symptoms: Reports: Nausea/Vomiting. Denies: Confusion, Chest Pain, Cough, Diaphoresis, Fever/Chills, Headaches, Loss of Appetite, Malaise, Rash, Seizure, Shortness of Breath - Related Data Allergies Allergy/AdvReac Type Severity Reaction Status Date / Time No Known Drug Allergies Allergy Other Verified 01/31/19 12:41 Home Meds: Home Meds Insulin Aspart [Novolog Flexpen] See Protocol SQ TIDMEALS 07/18/15 [History] Insulin Glarg,Human.Rec.Analog [Lantus] 30 unit SUBCUT DAILY 01/31/19 [History] Meropenem [Merrem] 1 gm IV Q8H sdv 02/01/19 [Rx] Sodium Chloride 0.9% [Normal Saline] 125 ml IV ASDIRECTED bag 02/01/19 [Rx] Vancomycin 1 gm IV Q8H sdv 02/01/19 [Rx] Past Medical History Cardiovascular History: Reports: [place] Other Cardiovascular History: When 21, instigated by hyperglycemic episode Respiratory History: Reports: Asthma Other Gastrointestinal History: esophageal tear Neurological History: Reports: None Psychiatric History: Reports: Addiction Endocrine/Metabolic History: Reports: Diabetes, Type I Dermatologic History: Reports: None - Infectious Disease History Infectious Disease History: Reports: Chicken Pox - Past Surgical History Endocrine Surgical History: Reports: None Neurological Surgical History: Reports: None Musculoskeletal Surgical History: Reports: Other (See Below) Other Musculoskeletal Surgeries/Procedures:: left lower leg fracture surgical repair Social & Family History - Caffeine Use Caffeine Use: Reports: Soda ED ROS GENERAL - Review of Systems Review Of Systems: See Below Constitutional: Reports: No Symptoms. Denies: Fever, Chills, Malaise, Weakness , Diaphoresis, Decreased Appetite HEENT: Reports: No Symptoms, Other (Patient has moist mucous membranes normal skin turgor) Respiratory: Reports: No Symptoms. Denies: Shortness of Breath, Wheezing, Pleuritic Chest Pain, Cough, Sputum Cardiovascular: Reports: No Symptoms Endocrine: Reports: No Symptoms GI/Abdominal: Reports: No Symptoms, Nausea, Vomiting. Denies: Abdominal Pain, Constipation, Diarrhea, Decreased Appetite, Difficulty Swallowing : Reports: No Symptoms Musculoskeletal: Reports: No Symptoms Skin: Reports: No Symptoms Neurological: Reports: No Symptoms Psychiatric: Reports: No Symptoms Hematologic/Lymphatic: Reports: No Symptoms Immunologic: Reports: No Symptoms ED EXAM, GENERAL - Physical Exam Exam: See Below Exam Limited By: No Limitations General Appearance: Alert, WD/WN, No Apparent Distress, Other (Patient alert and oriented x4 with normal conversation logical thought cranial nerves II through XII are intact patient has a normal gait although he is wearing bilateral walking Cam boots with compression dressings on both feet secondary to bilateral diabetic ulcers which he is getting treated for with wound care had dressing changed 2 days ago) Eye Exam: Bilateral Eye: EOMI, PERRL Ears: Normal External Exam, Normal Canal, Hearing Grossly Normal Nose: Normal Inspection, Normal Mucosa, No Blood Throat/Mouth: Normal Inspection, Normal Lips, Normal Teeth, Normal Gums, Normal Oropharynx, Normal Voice, No Airway Compromise Head: Atraumatic, Normocephalic Neck: Normal Inspection, Supple, Non-Tender, Full Range of Motion Respiratory/Chest: No Respiratory Distress, Lungs Clear, Normal Breath Sounds, No Accessory Muscle Use, Chest Non-Tender Cardiovascular: Normal Peripheral Pulses, Regular Rate, Rhythm, No Edema, No Gallop, No JVD, No Murmur, No Rub GI/Abdominal: Normal Bowel Sounds, Soft, Non-Tender, No Organomegaly, No Distention, Other (She has no peritoneal signs such as a heel slap pelvic rock no tenderness palpation across abdomen). No: Guarding, Rigid, Rebound, Tender Back Exam: Normal Inspection, Full Range of Motion. No: CVA Tenderness (L), CVA Tenderness (R) Extremities: Normal Inspection, Normal Range of Motion, Non-Tender (Patient has normal inspection of the upper extremities full range of motion with all compression dressings were left intact) Neurological: Alert, Oriented, CN II-XII Intact, Normal Cognition, Normal Gait, Normal Reflexes, No Motor/Sensory Deficits Psychiatric: Normal Affect, Normal Mood Skin Exam: Dry, Intact, Normal Color, No Rash Lymphatic: No Adenopathy Course - Vital Signs Text/Narrative:: CBC BMP UA was checked blood sugar 514 anion gap of 17.2 Patient was given 1 L normal saline 1 L lactated Ringer's and 5 units of insulin IV blood sugar was rechecked patient was recheck states he is feeling much better Negative nausea and vomiting holding fluids Recheck BMP see if decrease in anion gap and check blood sugar level gap was within normal limits but no change blood sugar has came down to 360 Patient is given instruction to follow-up with primary care provider in the next 24 hours take insulin as directed his blood sugar every 4 hours and dose on a sliding scale regimen gives verbal understanding Patient was rechecked holding p.o. fluids states he feels much better wants to go home he did ask if he can have a shot of Lantus for the night states he usually takes 27 units at bedtime he will be given 20 units he states he will follow-up with his PCP in the next 24 hours - Orders/Labs/Meds Orders: Active Orders 24 hr Category Date Time Status Insulin Glarg,Human.Rec.Analog [LantUS] Med 12/02/19 23:45 Ordered 20 unit SUBCUT DAILY Lactated Ringers [Ringers, Lactated] 1,000 ml Med 12/02/19 20:45 Active IV ASDIRECTED Sodium Chloride 0.9% [Normal Saline] 1,000 ml Med 12/02/19 20:45 Active IV ASDIRECTED Medication Orders Lactated Ringer's (Ringers, Lactated) 1,000 mls @ 1,000 mls/hr IV ASDIRECTED DEBBY Last Admin: 12/02/19 20:56 Dose: 1,000 mls/hr Sodium Chloride (Normal Saline) 1,000 mls @ 999 mls/hr IV ASDIRECTED [facility] Last Admin: 12/02/19 21:43 Dose: 999 mls/hr Labs: Laboratory Tests 12/02/19 12/02/19 12/02/19 Range/Units 20:17 21:02 21:02 WBC 8.3 (4.0-10.0) x10^3/uL RBC 5.02 (4.5-6.0) x10^6/uL Hgb 14.1 D (14.0-18.0) g/dL Hct 41.3 (40.0-52.0) % MCV 82.3 (78.0-93.0) fL MCH 28.1 (26.0-32.0) pg MCHC 34.1 (32.0-36.0) g/dL RDW Coeff of Mily 13.2 (10.0-15.0) % Plt Count 359 D (130-400) x10^3/uL Neut % (Auto) 67.5 (50.0-80.0) % Lymph % (Auto) 26.2 (25.0-50.0) % [place] % (Auto) 5.0 (2.0-11.0) % Eos % (Auto) 0.6 (0.0-4.0) % Baso % (Auto) 0.7 (0.2-1.2) % Sodium 132 L (136-145) mmol/L Potassium 4.2 (3.5-5.1) mmol/L Chloride 94 L (98-107) mmol/L Carbon Dioxide 25 (21-32) mmol/L Anion Gap 17.2 (10-20) mmol/L BUN 27 H (7-18) mg/dL Creatinine 1.2 (0.70-1.30) mg/dL Est Cr Clr Drug Dosing TNP Estimated GFR (MDRD) > 60 Glucose 514 H* (74-106) mg/dL POC Glucose 459 H* (74-106) mg/dL Calcium 8.6 (8.5-10.1) mg/dL 12/02/19 12/02/19 Range/Units 22:22 22:57 WBC (4.0-10.0) x10^3/uL RBC (4.5-6.0) x10^6/uL Hgb (14.0-18.0) g/dL Hct (40.0-52.0) % MCV (78.0-93.0) fL MCH (26.0-32.0) pg MCHC (32.0-36.0) g/dL RDW Coeff of Mily (10.0-15.0) % Plt Count (130-400) x10^3/uL Neut % (Auto) (50.0-80.0) % Lymph % (Auto) (25.0-50.0) % [place] % (Auto) (2.0-11.0) % Eos % (Auto) (0.0-4.0) % Baso % (Auto) (0.2-1.2) % Sodium 134 L (136-145) mmol/L Potassium 4.2 (3.5-5.1) mmol/L Chloride 97 L (98-107) mmol/L Carbon Dioxide 24 (21-32) mmol/L Anion Gap 17.2 (10-20) mmol/L BUN 23 H (7-18) mg/dL Creatinine 1.0 (0.70-1.30) mg/dL Est Cr Clr Drug Dosing TNP Estimated GFR (MDRD) > 60 Glucose 368 H (74-106) mg/dL POC Glucose 330 H (74-106) mg/dL Calcium 8.1 L (8.5-10.1) mg/dL Meds: Medications Generic Name Dose Route Start Last Admin Trade Name Freq PRN Reason Stop Dose Admin Lactated Ringer's 1,000 mls @ 1,000 mls/hr 12/02/19 20:45 12/02/19 20:56 Ringers, Lactated IV 1,000 mls/hr ASDIRECTED DEBBY Administration Sodium Chloride 1,000 mls @ 999 mls/hr 12/02/19 20:45 12/02/19 21:43 Normal Saline IV 999 mls/hr ASDIRECTED DEBBY Administration Discontinued Medications Generic Name Dose Route Start Last Admin Trade Name Freq PRN Reason Stop Dose Admin Insulin Human Regular 8 unit 12/02/19 21:33 12/02/19 22:42 Humulin R IVPUSH 12/02/19 21:34 Not Given ONETIME ONE Insulin Human Regular 5 unit 12/02/19 21:37 12/02/19 21:42 Humulin R IVPUSH 12/02/19 21:38 5 units ONETIME ONE Administration Ondansetron HCl 4 mg 12/02/19 20:37 12/02/19 21:01 Zofran IVPUSH 12/02/19 20:38 4 mg ONETIME ONE Administration Departure - Departure Time of Disposition: 23:30 Disposition: Home, Self-Care 01 Condition: Good Clinical Impression: Hyperglycemia due to type 1 diabetes mellitus - Discharge Information Instructions: Hyperglycemia, Meha-hm-[id number], Preventing Diabetic Ketoacidosis Referrals: PCP,Not In Area [Primary Care Provider] - Forms: ED Department Discharge Additional Instructions: Follow-up with your primary care provider in the next 24 hours Make sure you drink plenty of water you need to drink at least half a gallon of water a day you may substitute in Sprite zeros Make sure you take your insulin as directed by your primary care provider Continue to check your sugar every 4 hours for the next 12 hours Return to the emergency room if anything changes or gets worse Sepsis Event Note - Focused Exam Date Exam was Performed: 12/02/19 Time Exam was Performed: 23:37 - Problem List & Annotations (1) Hyperglycemia due to type 1 diabetes mellitus SNOMED Code(s): 076219960341229, 559603852111669 Code(s): E10.65 - TYPE 1 DIABETES MELLITUS WITH HYPERGLYCEMIA Status: Acute Priority: High Current Visit: Yes Onset Date: ~01/31/19 - My Orders Last 24 Hours: My Active Orders 12/02/19 20:45 Lactated Ringers [Ringers, Lactated] 1,000 ml IV ASDIRECTED Sodium Chloride 0.9% [Normal Saline] 1,000 ml IV ASDIRECTED 12/02/19 23:45 Insulin Glarg,Human.Rec.Analog [LantUS] 20 unit SUBCUT DAILY - Assessment/Plan Last 24 Hours: My Active Orders 12/02/19 20:45 Lactated Ringers [Ringers, Lactated] 1,000 ml IV ASDIRECTED Sodium Chloride 0.9% [Normal Saline] 1,000 ml IV ASDIRECTED 12/02/19 23:45 Insulin Glarg,Human.Rec.Analog [LantUS] 20 unit SUBCUT DAILY
[2019-12-02] MEDS ORDERED: Lactated Ringers 1,000 ML IV SCH (20:45)
[2019-12-02] MEDS ORDERED: Sodium Chloride 0.9% 1,000 ML IV SCH (20:45)
[2019-12-02 21:31] LABS: CHLORIDE,CL 94 mmol/L (98-107); SODIUM,NA 132 mmol/L (136-145)
[2019-12-02 21:32] LABS: ANION GAP 17.2 mmol/L (10-20)
[2019-12-02] MEDS ORDERED: Insulin Regular, Human 100 Units/ML 3 ML Vial IVPUSH ONE ×2 (21:33→21:37)
[2019-12-02 23:21] LABS: CHLORIDE,CL 97 mmol/L (98-107); SODIUM,NA 134 mmol/L (136-145)
[2019-12-02 23:22] LABS: ANION GAP 17.2 mmol/L (10-20)
[2019-12-02] MEDS ORDERED: Insulin Glarg,Human.Rec.Analog 100 Unit/ML SUBCUT SCH (23:45)
[2019-12-03 05:37] VITALS: BP 148/72; PULSE 82
== END 2019-12-03 02:40 | disposition home or self-care (01) ==
LOC: VM.ED 20:12
DX: E10.65 Type 1 diabetes mellitus with hyperglycemia (principal); I25.2 Old myocardial infarction; J45.909 Unspecified asthma, uncomplicated; Z79.4 Long term (current) use of insulin
CPT/HCPCS: 36415; 80048; 82962; 85025; 96361; 96374; 99284-25; J1815-GY; J2405; J7030; J7120